=== PATIENT | male | born 1990 | race Two or more races ===

== ENCOUNTER 2017-02-07 16:39 | Emergency (ER) | payer OTHER ==
[~2017-02-07] VITALS: Ht 167.6 cm; Wt 64.9 kg
[2017-02-07 16:56] VITALS: BP 125/73
[2017-02-07] MEDS ORDERED: IBUPROFEN 200 MG TABLET ONE (17:08)
[2017-02-07] MEDS ORDERED: IBUPROFEN 600 MG TABLET PO ONE (17:30)
== END 2017-02-07 18:44 | disposition home or self-care (01) ==
LOC: ER 16:43
DX: S93.491A Sprain of other ligament of right ankle, initial encounter (principal); W10.8XXA Fall (on) (from) other stairs and steps, initial encounter; Y93.89 Activity, other specified; Y92.89 Other specified places as the place of occurrence of the external cause; Y99.8 Other external cause status
CPT/HCPCS: 73610; 99284; A4606; Z7610

== ENCOUNTER 2017-09-25 18:58 | Emergency (ER) | payer OTHER ==
[~2017-09-25] VITALS: Ht 167.6 cm; Wt 65.8 kg
[2017-09-25 19:17] VITALS: BP 141/89
--- NOTE | 2017-09-25 19:20 | NUR ---
TO BED 7 A 27 YO MALE PATIENT BB SELF; FEVER, SORE THROAT X 1 DAY. PATIENT IS AAOX4, NAD NOTED. AFEBRILE UPON ARRIVAL, VSS. NONDIAPHORETIC. COMFORT MEASURES RENDERED. AWAITING FOR ER MD WALSH
== END 2017-09-25 19:59 | disposition home or self-care (01) ==
LOC: ER 19:01
DX: K08.89 Other specified disorders of teeth and supporting structures (principal)
CPT/HCPCS: 99283; A4606; Z7610

== ENCOUNTER 2018-02-07 05:14 | Emergency (ER) | payer OTHER ==
[~2018-02-07] VITALS: Ht 167.6 cm; Wt 65.8 kg
[2018-02-07 05:20] VITALS: BP 129/93
== END 2018-02-07 05:48 | disposition home or self-care (01) ==
LOC: ER 05:15
DX: M79.1 Myalgia (principal); M54.5 Low back pain; M25.511 Pain in right shoulder; M25.512 Pain in left shoulder; V49.49XA Driver injured in collision with other motor vehicles in traffic accident, initial encounter; Y93.89 Activity, other specified; Y92.413 State road as the place of occurrence of the external cause; Y99.8 Other external cause status
CPT/HCPCS: 99283; A4606; Z7610

== ENCOUNTER 2019-06-05 02:22 | Emergency (ER) | payer OTHER ==
[2019-06-05] MEDS ORDERED: METOCLOPRAMIDE HCL 10 MG/2 ML VIAL ONE (02:57)
[2019-06-05] MEDS ORDERED: SUMATRIPTAN SUCCINATE 6 MG/0.5 ML VIAL SQ ONE (02:57)
--- NOTE | 2019-06-05 06:40 | NUR ---
REFER TO DOWNTIME FORM FOR DOCUMENTATION
== END 2019-06-05 06:41 | disposition home or self-care (01) ==
LOC: ER 02:22
DX: R51 Headache (principal); F40.9 Phobic anxiety disorder, unspecified
CPT/HCPCS: 99281; J2765; J3030

== ENCOUNTER 2019-10-06 01:33 | Emergency (ER) | payer OTHER ==
[~2019-10-06] VITALS: Ht 167.6 cm; Wt 72.6 kg
--- NOTE | 2019-10-06 01:35 | NUR ---
PT C/O ABDOMINAL PAIN X2 DAYS, HEADACHE X4 HRS. "SOMETIME I FEEL LIKE NEEDLES IN MY CHEST". PT AOX4. AMBULATORY. NAD NOTED. RESP EVEN AND UNLABORED. PT ON MONITOR IN BED 3. WILL CONTINUE TO MONITOR.
--- NOTE | 2019-10-06 02:13 | NUR ---
ER AT BEDSIDE
--- NOTE | 2019-10-06 02:33 | NUR ---
BLOOD DRAWN AND GIVEN TO PHLEB
[2019-10-06 02:37] LABS: BASOPHILS # (AUTO) 0.1 /CMM (0.0-0.2); BASOPHILS % (AUTO) 0.6 % (0.0-2.0); EOSINOPHILS % (AUTO) 1.5 % (0.0-6.0); HEMATOCRIT 49 % (39-51); HEMOGLOBIN 16.6 g/dL (13.5-17.5); LYMPHOCYTES # (AUTO) 3.2 /CMM (0.8-4.8); LYMPHOCYTES % (AUTO) 20.9 % (20.0-44.0); MEAN CORPUSCULAR HGB CONC 34 g/dl (31.0-36.0); MEAN CORPUSCULAR VOLUME 85 fL (80-96); MONOCYTES % (AUTO) 6.5 % (2.0-12.0); NEUTROPHILS # (AUTO) 10.9 /CMM (1.8-8.9); NEUTROPHILS % (AUTO) 70.5 % (43.0-81.0); PLATELET COUNT (AUTO) 293 /CMM (150-450); RED BLOOD CELL COUNT(AUTO) 5.76 MIL/uL (4.5-6.0); WHITE BLOOD COUNT (AUTO) 15.5 K/uL (4.3-11.0)
[2019-10-06 02:59] LABS: CALCIUM, SERUM 9.3 mg/dL (8.5-10.1); CREATININE 0.9 mg/dL (0.6-1.3); POTASSIUM 3.9 mmol/L (3.5-5.1)
--- NOTE | 2019-10-06 03:10 | NUR ---
PT TAKEN TO RADIOLOGY VIA [facility]
[2019-10-06] MEDS ORDERED: IOHEXOL-300 100 ML VIAL IV ONE (03:15)
--- NOTE | 2019-10-06 03:43 | NUR ---
PT RETURNED FROM RADIOLOGY [facility]IA [facility]
[2019-10-06 05:54] VITALS: BP 134/97
== END 2019-10-06 05:54 | disposition home or self-care (01) ==
LOC: ER 01:36
DX: R19.7 Diarrhea, unspecified (principal); R51 Headache; R10.33 Periumbilical pain
CPT/HCPCS: 36415; 74177; 80048; 85025; 93005; 99284; Q9967

== ENCOUNTER 2022-09-29 16:22 | Emergency (ER) | payer OTHER ==
[~2022-09-29] VITALS: Ht 167.6 cm; Wt 68.0 kg
--- NOTE | 2022-09-29 16:45 | NUR ---
CALLED TO TRIAGE,NO ANSWER
--- NOTE | 2022-09-29 17:00 | NUR ---
CALLED TO ROOM IN, NO ANSWER
--- NOTE | 2022-09-29 18:00 | NUR ---
PT SEEN BY FOR EVLIZBET
--- NOTE | 2022-09-29 18:20 | NUR ---
TECH AT BEDSIDE FOR VELCRO THUMB SPICA APPLICATION
--- NOTE | 2022-09-29 18:27 | NUR ---
Patient discharged to home in stable condition. Written and verbal after care instructions given. Patient verbalizes understanding of instruction.
[2022-09-29 18:29] VITALS: BP 116/73
== END 2022-09-29 18:30 | disposition home or self-care (01) ==
LOC: ER 16:26
DX: G56.02 Carpal tunnel syndrome, left upper limb (principal)

== ENCOUNTER 2024-01-23 11:15 | Emergency (ER) | payer OTHER ==
[~2024-01-23] VITALS: Ht 167.6 cm; Wt 66.2 kg
[2024-01-23] MEDS ORDERED: LIDOCAINE 5% (PATCH) 1 EA PATCH TP ONE (13:11)
[2024-01-23] MEDS ORDERED: KETOROLAC TROMETHAMINE 15 MG/ML VIAL ONE (13:11)
[2024-01-23] MEDS: LIDOCAINE 5% (PATCH) 1 EA PATCH TP STA (13:16)
[2024-01-23] MEDS: KETOROLAC TROMETHAMINE 15 MG/ML VIAL IM ONE (13:16)
[2024-01-23] MEDS ORDERED: LIDO30AD10 TP (13:18)
[2024-01-23] MEDS ORDERED: CYCL5TAB PO (13:18)
[2024-01-23] MEDS ORDERED: IBUP-1955 PO (13:18)
[2024-01-23] MEDS ORDERED: METH4TAB17 PO (13:18)
[2024-01-23 13:27] VITALS: BP 138/78; TEMP 98.4; O2SAT 98
== END 2024-01-23 13:27 | disposition home or self-care (01) ==
LOC: ER 11:17
DX: S29.012A Strain of muscle and tendon of back wall of thorax, initial encounter (principal); G56.21 Lesion of ulnar nerve, right upper limb; X58.XXXA Exposure to other specified factors, initial encounter; Y93.89 Activity, other specified; Y92.89 Other specified places as the place of occurrence of the external cause; Y99.8 Other external cause status
CPT/HCPCS: 99283; 96372; 73030; J1885